=== PATIENT | female | born 1995 | race Caucasian/White ===

== ENCOUNTER 2019-12-18 09:54 | Outpatient (CLI) | payer OTHER, SELFPAY ==
--- NOTE | ~2019-12-18 | US_ITS ---
EXAMINATION: US_IMPLREM_US DATE: 12/18/2019 11:58 INDICATION: Lost Nexplanon implant TECHNIQUE: Multiple grayscale and Doppler ultrasound images of the left upper arm were obtained. Radi ologist was present for the initial imaging but not for the implant removal which was performed by Dr Priscilla Brady. COMPARISON: None FINDINGS: There is approximately 2.4 cm linear echogenic and shadowing foreign body in the deep subcutaneous ti ssue abutting the superficial margin of the muscle at the medial left upper arm. There is no longer v isualized on the image obtained post implant removal. IMPRESSION: 1. Ultrasound utilized to localize Nexplanon implant at the medial left upper arm for removal by Dr. Brady. See procedure note for further detail. Reviewed, dictated and finalized at location A. IMPRESSION: 1. Ultrasound utilized to localize Nexplanon implant at the medial left upper a rm for removal by Dr. Brady. See procedure note for further detail.
--- NOTE | 2019-12-18 16:17 | PM.PROC ---
Procedure Note - Detailed Date of procedure: 12/18/19 Pre-op diagnosis: LOST NEXPLENON Implant Difficult to remove contraceptive implant Post-op diagnosis: same Procedure performed: Ultrasound guided removal of Nexplanon. Description of procedure: The patient was taken to the ultrasound suite. The Nexplanon tushar was visualized sonographically in the left arm. The skin was marked and prepped and infiltrated with 2 mL of 1% lidocaine. A stab incision was made with a #11 scalpel. Under ultrasound guidance, the Nexplanon tushar was able to be grasped with a curved hemostat and removed, intact. It was discarded. Hemostasis was excellent and the patient tolerated the procedure well. Steri-Strips and a pressure dressing were applied. Anesthesia: local (1% lidocaine) Surgeon: Patricio Brady MD Estimated blood loss (mL): 5 Drains: No Packing: No Pathology: none sent Complications: None Condition: stable Disposition: other (Home) Findings: Intact Nexplanon tushar.
== END 2019-12-18 09:55 | disposition home or self-care (01) ==
LOC: ANHIMG 10:11
PROVIDERS: PCP Family Medicine; Visit Provider Obstetrics & Gynecology
DX: Z30.46 Encounter for surveillance of implantable subdermal contraceptive (principal)
CPT/HCPCS: 11976; 76942

== ENCOUNTER 2020-09-12 18:36 | Emergency (ER) | payer BC, MEDICAID, SELFPAY ==
[2020-09-12 18:43] VITALS: BP 130/72; PULSE 87; RESP 17; TEMP 36.4; O2SAT 100
[2020-09-12 19:02] LABS: Basophils Percent Auto 0.2 % (0.2-1.2); Eosinophils Percent Auto 0.3 % (0-4.4); Hematocrit 39.4 % (37.0-47.0); Hemoglobin 13.1 g/dL (12.0-15.0); Immature Granulocyte Absolute 0.05 K/mm3 (0.00-0.031); Immature Granulocyte Percent A 0.4 % (0-0.5); Lymphocytes Absolute Auto 2.04 K/mm3 (0.9-3.2); Lymphocytes Percent Auto 16.4 % (18.3-44.2); Mean Corpuscular HGB Conc 33.2 g/dl (32-36); Mean Corpuscular Hemoglobin 31.2 pg (26-34); Mean Corpuscular Volume 93.8 fl (80-100); Mean Platelet Volume 9.6 fl (7.4-10.4); Monocytes Percent Auto 8.1 % (2.6-8.5); Neutrophils Absolute Auto 9.3 K/mm3 (1.3-6.7); Neutrophils Percent Auto 74.6 % (45.5-73.1); Platelet Count Result 288 k/mm3 (150-375); Red Cell Distribution Width 13.2 % (11.5-14.5); White Blood Count 12.4 K/mm3 (4.5-10.0)
[2020-09-12 19:13] LABS: Anion Gap 9 mmol/L (8-16); Blood Urea Nitrogen 7 mg/dL (7-17); Calcium 9.2 mg/dL (8.4-10.2); Carbon Dioxide 23 mmol/L (22-30); Chloride 104 mmol/L (98-107); Estimated CRCL calculation 141 ml/min; Estimated Glomerular Filt Rate > 60; Glucose 87 mg/dL (65-105); Potassium 3.7 mmol/L (3.4-5.0); Sodium 136 mmol/L (137-145)
[2020-09-12] MEDS: METOCLOPRAMIDE HCL INJ 10 MG/2 ML VIAL IV PUSH (19:29)
[2020-09-12] MEDS: SODIUM CHLORIDE 0.9% IV 1,000 ML 999 ML IV CONT (19:29)
--- NOTE | 2020-09-12 19:31 | ED.GENADULT ---
HPI - General Adult General Chief complaint: Abdominal Pain Stated complaint: , vag spotting, cramping Time Seen by Provider: 09/12/20 19:04 History of Present Illness HPI narrative: Patient is a 24-year-old female who presents [facility] department with chief complaint of abdominal cramping and spotting. Patient reports that she is currently around 9 weeks and has had an outpatient ultrasound by her [facility]. The patient reports she has history of factor V Leiden and states that since Sunday she has been having nausea and vomiting and has had no improvement with her promethazine that she has been taking as an outpatient. The patient reports she has been unable to keep fluids down and today started cramping and had some small amounts of spotting. Related Data Allergies Allergy/AdvReac Type Severity Reaction Status Date / Time latex Allergy Intermediate ITCHY, Verified 09/12/20 18:42 LOCAL RASH, HIVES acetaminophen Allergy Unknown NAUSEA Verified 09/12/20 18:42 hydrocodone Allergy Unknown LIPS Verified 09/12/20 18:42 SWOLLEN naproxen Allergy Unknown LIPS Verified 09/12/20 18:42 SWELLING Review of Systems Review of Systems: Narrative: A 10 system review of systems was completed on the patient and is negative except for what is stated in the HPI. Nursing and ancillary documentation was reviewed. FORMERLY [facility], [facility] Past Medical History Medical History Exercise-induced asthma Factor V Leiden Lamin's thyroiditis History of DVT (deep vein thrombosis) Surgical History Surgical History History of placement of ear tubes Family History Family History Grandparent Lamin's thyroiditis Breast cancer Mother Hypertension Sibling Asthma Father Clotting disorder Social History Social History Smoking packs per day: 0.5 Smoking cigarettes per day: 10.0 Years smoked: 3 Smoking pack-years: 1.50 Smoking status: Former smoker Second hand tobacco smoke exposure: No Smoking end date: 09/24/15 Alcohol intake: current Substance use: never Substance use type: does not use Gender identity (if verbalized by the patient): Female Exam Narrative: Exam Narrative: GENERAL: Well-appearing, well-nourished, and in no acute distress. HEAD: Normocephalic, atraumatic. EYES: PERRLA and EOMI. ENT: Nares clear, no rhinorrhea or epistaxis. Mucous membranes moist. NECK: Supple. CHEST: Clear to auscultation. No respiratory distress. HEART: Regular rate and rhythm. No murmur heard. Normal peripheral pulses. ABDOMEN: Soft, nontender, nondistended, normal active bowel sounds. EXTREMITIES: Normal range of motion. No edema. SKIN: Warm, dry, no rash. NEURO: No focal deficits. Alert and oriented x3. PSYCH: Normal mood and affect. Course Vital Signs Vital signs: Vital Signs Temperature 36.4 C L 09/12/20 18:43 Pulse Rate 87 09/12/20 18:43 Respiratory Rate 17 09/12/20 18:43 Blood Pressure 130/72 09/12/20 18:43 Pulse Oximetry 100 09/12/20 18:43 Temperature 36.4 C L 09/12/20 18:43 Pulse Rate 81 09/12/20 19:34 Respiratory Rate 16 09/12/20 19:34 Blood Pressure 98/64 L 09/12/20 19:34 Pulse Oximetry 99 09/12/20 19:34 Procedures Other Procedure Procedure 1: Other Procedure: Bedside transabdominal ultrasound for evaluation of Using a curvilinear probe in the transabdominal approach a intrauterine was visualized with ultrasound and there was cardiac activity noted on exam. Medical Decision Making Vital Signs Vital Signs: Vital Signs Temperature 36.4 C L 09/12/20 18:43 Pulse Rate 87 09/12/20 18:43 Respiratory Rate 17 09/12/20 18:43 Blood Pressure 130/72 09/12/20 18
[2020-09-12 19:34] VITALS: BP 98/64; PULSE 81; RESP 16; O2SAT 99
[2020-09-12] MEDS: RHO(D) IMMUNE GLOBULIN 300 MCG SYRINGE IM (21:46)
== END 2020-09-12 22:17 | disposition home or self-care (01) ==
PROVIDERS: Emergency Medicine; Emergency Provider Emergency Medicine; PCP Family Medicine
DX: O20.0 Threatened abortion (principal); O21.9 Vomiting of pregnancy, unspecified; O99.111 Other diseases of the blood and blood-forming organs and certain disorders involving the immune mechanism complicating pregnancy, first trimester; D68.51 Activated protein C resistance; O99.281 Endocrine, nutritional and metabolic diseases complicating pregnancy, first trimester; E06.3 Autoimmune thyroiditis; O99.511 Diseases of the respiratory system complicating pregnancy, first trimester; J45.990 Exercise induced bronchospasm; Z86.718 Personal history of other venous thrombosis and embolism; Z3A.09 9 weeks gestation of pregnancy; Z87.891 Personal history of nicotine dependence
CPT/HCPCS: 36415; 80048; 84702; 85025; 85461; 90384; 96361; 96372; 96374; 99284; J2765; J2790; J7030

== ENCOUNTER 2021-01-26 11:03 | Outpatient (RCR) | payer BC, SELFPAY ==
[2021-01-27] MEDS: RHO(D) IMMUNE GLOBULIN 300 MCG/2 ML SYRINGE IM (13:11)
== END 2021-04-26 23:59 | disposition home or self-care (01) ==
LOC: ANHLAB 11:03
PROVIDERS: PCP Family Medicine; Visit Provider Obstetrics & Gynecology
DX: Z29.13 Encounter for prophylactic Rho(D) immune globulin (principal); O36.0190 Maternal care for anti-D [Rh] antibodies, unspecified trimester, not applicable or unspecified; Z3A.00 Weeks of gestation of pregnancy not specified
CPT/HCPCS: 36415; 85461; 90384; 96372; J2790

== ENCOUNTER 2021-02-11 11:31 | Outpatient (CLI) | payer BC, SELFPAY ==
[2021-02-11 12:08] VITALS: BP 110/69; PULSE 99
[2021-02-11 12:14] LABS: Basophils Percent Auto 0.2 % (0.2-1.2); Eosinophils Absolute Auto 0.1 K/mm3 (0-0.3); Eosinophils Percent Auto 0.8 % (0-4.4); Hematocrit 32.9 % (37.0-47.0); Hemoglobin 10.6 g/dL (12.0-15.0); Immature Granulocyte Absolute 0.11 K/mm3 (0.00-0.031); Lymphocytes Absolute Auto 1.75 K/mm3 (0.9-3.2); Lymphocytes Percent Auto 15.4 % (18.3-44.2); Mean Corpuscular HGB Conc 32.2 g/dl (32-36); Mean Corpuscular Hemoglobin 28.3 pg (26-34); Mean Platelet Volume 9.2 fl (7.4-10.4); Monocytes Absolute Auto 0.8 K/mm3 (0.1-0.6); Monocytes Percent Auto 6.7 % (2.6-8.5); Neutrophils Absolute Auto 8.6 K/mm3 (1.3-6.7); Neutrophils Percent Auto 75.9 % (45.5-73.1); Platelet Count Result 319 k/mm3 (150-375); Red Blood Count 3.74 M/mm3 (4.2-5.4); Red Cell Distribution Width 13.3 % (11.5-14.5); White Blood Count 11.3 K/mm3 (4.5-10.0)
[2021-02-11 12:24] LABS: Alanine Aminotransferase 21 U/L (4-35); Albumin Level 3.5 g/dL (3.5-5.1); Alkaline Phosphatase 108 U/L (38-126); Anion Gap 3 mmol/L (8-16); Aspartate Amino Transferase 26 U/L (14-36); Bilirubin,Total 0.1 mg/dL (0.2-1.3); Blood Urea Nitrogen 4 mg/dL (7-17); Calcium 8.9 mg/dL (8.4-10.2); Carbon Dioxide 21 mmol/L (22-30); Chloride 110 mmol/L (98-107); Estimated Glomerular Filt Rate > 60; Glucose 91 mg/dL (65-105); Potassium 3.8 mmol/L (3.4-5.0); Sodium 134 mmol/L (137-145); Uric Acid 3.3 mg/dL (2.5-7.5)
[2021-02-11 12:30] VITALS: BP 125/77; PULSE 91
[2021-02-11 12:37] LABS: Add Urine Microscopic? YES; Appearance Urine Cloudy (Clear); Bacteria Urine Trace /hpf; Bilirubin Urine Negative (Negative); Blood Urine Negative (Negative); Color Urine Yellow (Yellow); Glucose Urine UA Negative (Negative); Ketones Urine Negative (Negative); Leukocyte Esterase Ur 3+ LEU/UL (NEGATIVE); Mucus Urine Rare /lpf; Nitrate Urine Negative (Negative); Protein Urine 1+ mg/dL (Negative); RBC Urine 0-2 /hpf (0-2); Specific Grav Ur 1.013 (1.001-1.035); Squamous Epithelial Cell Urine Many /hpf (Few); Urobilinogen Urine Negative mg/dL (<2.0); WBC Urine 0-3 /hpf (0-3)
[2021-02-11 13:01] VITALS: BP 107/80; PULSE 89
[2021-02-11 13:07] VITALS: TEMP 36.6
[2021-02-11 13:20] VITALS: PULSE 89
== END 2021-02-11 13:22 | disposition home or self-care (01) ==
LOC: ANHOBOP 11:37 → ANHOBPP 11:38
PROVIDERS: PCP Family Medicine; Visit Provider Obstetrics & Gynecology
DX: R51.9 Headache, unspecified (principal); R42 Dizziness and giddiness
CPT/HCPCS: 36415; 59025; 80053; 81001; 84550; 85025; 99199

== ENCOUNTER 2021-03-25 15:41 | Outpatient (CLI) | payer BC, MEDICAID, SELFPAY ==
[2021-03-25 16:57] LABS: Add Urine Microscopic? YES; Amorphous Sediment Urine Few; Appearance Urine Cloudy (Clear); Bacteria Urine Trace /hpf; Bilirubin Urine Negative (Negative); Blood Urine Negative (Negative); Color Urine Yellow (Yellow); Glucose Urine UA Negative (Negative); Ketones Urine Negative (Negative); Leukocyte Esterase Ur 3+ LEU/UL (Negative); Mucus Urine Moderate /lpf; Nitrate Urine Negative (Negative); Protein Urine 1+ mg/dL (Negative); Specific Grav Ur 1.025 (1.001-1.035); Squamous Epithelial Cell Urine Many /hpf (Few); Urobilinogen Urine Negative mg/dL (<2.0)
--- NOTE | 2021-03-26 10:58 | PM.OBTRLD ---
OB - Triage/Final Diagnosis Visit Information Date of evaluation: 03/25/21 Reason for evaluation: other (r/o SROM) Comments/Additional reasons for admission: I have assessed the risk for this patient, Hina Siegel, and determined that she would benefit from observation care. Evaluation Laboratory results: Laboratory Tests 03/25/21 16:39 Urine Color Yellow Urine Appearance Cloudy H Urine pH 6.0 Ur Specific [place] 1.025 Urine Protein 1+ H Urine Glucose (UA) Negative Urine Ketones Negative Ur Blood (Man) Negative Urine Nitrate Negative Urine Bilirubin Negative Urine Urobilinogen Negative Leukocyte Esterase Rfl 3+ H Urine RBC 3-5 H Urine WBC 4-6 H Ur Squamous Epith Cells Many H Amorphous Sediment Few H Urine Bacteria Trace Hyaline Casts 3-4 H Urine Mucus Moderate H
== END 2021-03-25 17:10 | disposition home or self-care (01) ==
LOC: ANHOBOP 16:31 → ANHLDR 16:32
PROVIDERS: Student in an Organized Health Care Education/Training Program; PCP Family Medicine; Visit Provider Obstetrics & Gynecology
DX: O41.93X1 Disorder of amniotic fluid and membranes, unspecified, third trimester, fetus 1 (principal); Z3A.36 36 weeks gestation of pregnancy
CPT/HCPCS: 59025; 81001; 84112; 99199

== ENCOUNTER 2021-04-10 15:50 | Inpatient (IN) | payer BC, MEDICAID, SELFPAY ==
[2021-04-10] VITALS (8 sets, daily range): BP systolic 72–131; BP diastolic 51–90; PULSE 66–101; TEMP 36.6–36.9; BMI 31.4
[2021-04-10 16:38] LABS: Basophils Percent Auto 0.1 % (0.2-1.2); Eosinophils Percent Auto 0.3 % (0-4.4); Hematocrit 32.5 % (37.0-47.0); Immature Granulocyte Absolute 0.08 K/mm3 (0.00-0.031); Immature Granulocyte Percent A 0.7 % (0-0.5); Lymphocytes Absolute Auto 1.71 K/mm3 (0.9-3.2); Lymphocytes Percent Auto 15.3 % (18.3-44.2); Mean Corpuscular HGB Conc 30.8 g/dl (32-36); Mean Corpuscular Hemoglobin 25.4 pg (26-34); Mean Corpuscular Volume 82.5 fl (80-100); Mean Platelet Volume 9.6 fl (7.4-10.4); Monocytes Absolute Auto 0.8 K/mm3 (0.1-0.6); Monocytes Percent Auto 6.8 % (2.6-8.5); Neutrophils Absolute Auto 8.6 K/mm3 (1.3-6.7); Neutrophils Percent Auto 76.8 % (45.5-73.1); Platelet Count Result 337 k/mm3 (150-375); Red Blood Count 3.94 M/mm3 (4.2-5.4); Red Cell Distribution Width 14.6 % (11.5-14.5); White Blood Count 11.2 K/mm3 (4.5-10.0)
[2021-04-10 16:55] LABS: Amphetamine Screen Urine Negative (Negative); Barbiturate Screen Urine Negative (Negative); Benzodiazepines Screen Urine Negative (Negative); Cannabinoid Screen Urine Negative (Negative); Cocaine Screen Urine Negative (Negative); Methadone Screen Urine Negative (Negative); Opiate Screen Urine Negative (Negative); Phencyclidine Screen Urine Negative (Negative)
[2021-04-10] MEDS: LACTATED RINGERS 1,000 ML 125 ML IV CONT ×2 (17:11→21:01)
[2021-04-10] MEDS: AMPICILLIN 2 GM/NS 100 ML 2 GM/100 ML BAG IVPB (17:12)
[2021-04-10 19:29] LABS: INR 0.9; Prothrombin Time 12.5 Seconds (11.1-14.7)
[2021-04-10 19:30] LABS: Partial Thromboplastin Time 22.9 SECONDS (22.3-36.8)
[2021-04-10] MEDS: DINOPROSTONE 10 MG VAG INSERT VAGINAL (19:30)
[2021-04-10] MEDS: AMPICILLIN 1 GM/NS 50 ML 1 GM/50 ML BAG IVPB (21:01)
[2021-04-11] VITALS (280 sets, daily range): BP systolic 69–128; BP diastolic 12–102; PULSE 42–155; TEMP 36.2–38.4; O2SAT 90–100
[2021-04-11] MEDS: AMPICILLIN 1 GM/NS 50 ML 1 GM/50 ML BAG IVPB ×6 (01:26→22:45)
[2021-04-11] MEDS: OXYTOCIN 30 UNITS/NS 500 ML 30 UNITS/500 ML BAG 125 UNITS IV CONT (07:39)
--- NOTE | 2021-04-11 08:40 | WPDOBADMIT ---
Obstetrics - Admit Note Admission Note: record reviewed. Additions to the history and/or subsequent changes in the physical findings follow. 25 y/o G1 at 39 1/7 weeks with thrombophilia, here for induction of labor. Cervidil overnight, has been withdrawn. AVSS NST reactive TOCO: contractions irregularly ABD soft, nontender, gravid, vertex EXT nontender Cervix 2-3/50/-2. AROM with clear fluid. A: IUP at term with thrombophilia. P: Induction of labor with oxytocin. Anticipate .
[2021-04-11 09:52] LABS: Rapid Plasma Reagin Non-Reactive (NonReactive)
--- NOTE | 2021-04-11 12:15 | WPDANESEPPF ---
Anes - Initial Pre Proc Eval Procedure: labor epidural Date/Time: 04/11/21 12:15 Surgeon: Patricio Brady MD Pre Op Diagnosis: labor pain Pre Op Diagnosis: MIL Patient Data Age: 25 Gender: F Height: 1.7 m Weight: 91 kg Last Vital Signs Temp 36.7 C 04/11/21 10:45 Pulse 68 04/11/21 12:01 BP 101/53 L 04/11/21 12:01 Pulse Ox 100 04/11/21 12:10 Allergies Allergy/AdvReac Type Severity Reaction Status Date / Time latex Allergy Intermediate ITCHY, Verified 04/10/21 16:34 LOCAL RASH, HIVES naproxen Allergy Unknown LIPS Verified 04/10/21 16:34 SWELLING Home Medications Medication Instructions Recorded Confirmed Type levothyroxine 75 mcg tablet 75 mcg PO DAILY #30 tablet 02/21/21 04/10/21 Rx Gummies 2 PO DAILY 03/21/21 History escitalopram oxalate [Lexapro] 10 mg PO DAILY 03/21/21 04/10/21 History heparin (bovine) 100 unit 03/21/21 History Laboratory Tests 04/10/21 04/10/21 04/10/21 16:31 16:32 16:32 WBC 11.2 K/mm3 H K/mm3 (4.5-10.0) RBC 3.94 M/mm3 L M/mm3 (4.2-5.4) Hgb 10.0 g/dL L g/dL (12.0-15.0) Hct 32.5 % L % (37.0-47.0) MCV 82.5 fl fl (80-100) MCH 25.4 pg L pg (26-34) MCHC 30.8 g/dl L g/dl (32-36) RDW 14.6 % H % (11.5-14.5) Plt Count 337 k/mm3 k/mm3 (150-375) MPV 9.6 fl fl (7.4-10.4) Immature Gran % (Auto) 0.7 % H % (0-0.5) Neut % (Auto) 76.8 % H % (45.5-73.1) Lymph % (Auto) 15.3 % L % (18.3-44.2) Powell % (Auto) 6.8 % % (2.6-8.5) Eos % (Auto) 0.3 % % (0-4.4) Baso % (Auto) 0.1 % L % (0.2-1.2) Lymph # (Auto) 1.71 K/mm3 K/mm3 (0.9-3.2) Powell # (Auto) 0.8 K/mm3 H K/mm3 (0.1-0.6) Eos # (Auto) 0.0 K/mm3 K/mm3 (0-0.3) Baso # (Auto) 0.0 K/mm3 K/mm3 (0.0-0.1) Abs Immat Gran (auto) 0.08 K/mm3 H K/mm3 (0.00-0.031) Absolute Neuts (auto) 8.6 K/mm3 H K/mm3 (1.3-6.7) Absolute Nucleated RBC 0.0 K/mm3 K/mm3 (0.0-0.012) Nucleated RBC % 0.0 % % (0.0-0.2) PT INR APTT Urine Opiates Screen Negative (Negative) Urine Methadone Screen Negative (Negative) Ur Barbiturates Screen Negative (Negative) Ur Phencyclidine Scrn Negative (Negative) Ur Amphetamine Screen Negative (Negative) U Benzodiazepines Scrn Negative (Negative) Urine Cocaine Screen Negative (Negative) U Cannabinoids Screen Negative (Negative) RPR Non-reactive (NonReactive) Blood Type Antibody Screen 04/10/21 04/10/21 16:32 19:04 WBC RBC Hgb Hct MCV MCH MCHC RDW Plt Count MPV Immature Gran % (Auto) Neut % (Auto) Lymph % (Auto) Powell % (Auto) Eos % (Auto) Baso % (Auto) Lymph # (Auto) Powell # (Auto) Eos # (Auto) Baso # (Auto) Abs Immat Gran (auto) Absolute Neuts (auto) Absolute Nucleated RBC Nucleated RBC % PT 12.5 Seconds Seconds (11.1-14.7) INR 0.9 APTT 22.9 SECONDS SECONDS (22.3-36.8) Urine Opiates Screen Urine Methadone Screen Ur Barbiturates Screen Ur Phencyclidine Scrn Ur Amphetamine Screen U Benzodiazepines Scrn Urine Cocaine Screen U Cannabinoids Screen RPR Blood Type O Negative Antibody Screen Negative Patient hx anesthesia problems: none Family hx anesthesia problems: none PMFSH Past Medical History Medical History Exercise-induced asthma
[2021-04-11] MEDS: SODIUM CHLORIDE 0.9% IV 300 ML 180 ML I-UTERINE (12:47)
--- NOTE | 2021-04-11 12:58 | PM.IMHP ---
H&P: HPI History of Present Illness Date/Time: 04/11/21 0840 25 y/o G1 at 39 1/7 weeks with thrombophilia, here for induction of labor. History of PE while taking a combined oral contraceptive, has a factor V Leiden gene mutation (heterozygous). Also has hypothyroidism, depression / anxiety, and marijuana use. Has been on Lovenox, switched to heparin. Now here for induction of labor. Cervidil overnight, has been withdrawn. Chief Complaint: Here for induction of labor Review of Systems Review of Systems: All systems reviewed & are unremarkable except as noted in HPI and below PMFSH Past Medical History Medical History Anxiety Exercise-induced asthma Factor V Leiden Lamin's thyroiditis History of DVT (deep vein thrombosis) History of pulmonary embolism Surgical History Surgical History History of placement of ear tubes Family History Family History Grandparent Breast cancer Lamin's thyroiditis Leukemia Mother Hypertension Sibling Asthma Father Clotting disorder Social History Social History Smoking packs per day: 0.5 Smoking cigarettes per day: 10.0 Years smoked: 3 Smoking pack-years: 1.50 Smoking status: Never smoker Second hand tobacco smoke exposure: No Smoking end date: 09/24/15 Alcohol intake: current Alcohol use details: occasional Substance use: current Substance use type: does not use Last use: LAST 03/20/21 Gender identity (if verbalized by the patient): Female Spiritual care concerns: No Meds Home Medications and Allergies Home Medications Medication Instructions Recorded Confirmed Type levothyroxine 75 mcg tablet 75 mcg PO DAILY #30 tablet 02/21/21 04/10/21 Rx Gummies 2 PO DAILY 03/21/21 History escitalopram oxalate [Lexapro] 10 mg PO DAILY 03/21/21 04/10/21 History heparin (bovine) 100 unit 03/21/21 History Allergies Allergy/AdvReac Type Severity Reaction Status Date / Time latex Allergy Intermediate ITCHY, Verified 04/10/21 16:34 LOCAL RASH, HIVES naproxen Allergy Unknown LIPS Verified 04/10/21 16:34 SWELLING Vital Signs Vital Signs - 24 hr 04/10/21 16:21 04/10/21 17:15 04/10/21 18:00 Temperature Pulse Rate 101 H 78 76 Blood Pressure 112/85 104/62 109/67 Pulse Oximetry 04/10/21 19:04 04/10/21 19:34 04/10/21 20:00 Temperature 36.9 C Pulse Rate 73 93 Blood Pressure 91/51 L 117/90 Pulse Oximetry 04/10/21 21:01 04/10/21 23:19 04/11/21 01:28 Temperature 36.6 C 36.8 C Pulse Rate 78 66 62 Blood Pressure 131/75 72/57 L 95/56 L Pulse Oximetry 04/11/21 05:13 04/11/21 07:40 04/11/21 07:41 Temperature 36.6 C Pulse Rate 60 66 Blood Pressure 95/51 L 104/56 L Pulse Oximetry 100 04/11/21 07:45 04/11/21 07:50 04/11/21 07:55 Temperature Pulse Rate 58 L Blood Pressure 97/57 L Pulse Oximetry 100 99 99 04/11/21 08:00 04/11/21 08:01 04/11/21 08:05 Temperature Pulse Rate 65 Blood Pressure 96/64 L Pulse Oximetry 100 99 04/11/21 08:10 04/11/21 08:15 04/11/21 08:20 Temperature Pulse Rate 76 Blood Pressure 108/70 Pulse Oximetry 100 100 100 04/11/21 08:25 04/11/21 08:30 04/11/21 08:35 Temperature Pulse Rate 66 Blood Pressure 106/73 Pulse Oximetry 100 100 100 04/11/21 08:40 04/11/21 08:45 04/11/21 08:46 Temperature 36.6 C Pulse Rate 74 Blood Pressure 109/72 Pulse Oximetry 100 100 100 04/11/21 08:51 04/11/21 08:56 04/11/21 09:01 Temperature Pulse Rate 61 Blood Pressure 95/58 L Pulse Oximetry 100 100 100 04/11/21 09:06 04/11/21 09:11 04/11/21 09:15 Temperature Pulse Rate 69 Blood Pressure 104/55 L Pulse Oximetry 100 100 04/11/21 09:16 04/11/21 09:20
[2021-04-11] MEDS: LACTATED RINGERS 1,000 ML 125 ML IV CONT ×2 (15:58→22:45)
[2021-04-11] MEDS: SODIUM CHLORIDE 0.9% IV 1,000 ML 150 ML I-UTERINE (18:34)
[2021-04-11] MEDS: ONDANSETRON INJ 4 MG/2 ML VIAL IV PUSH (20:42)
[2021-04-12] VITALS (70 sets, daily range): BP systolic 79–120; BP diastolic 48–102; PULSE 53–143; RESP 14–18; TEMP 36.7–37.4; O2SAT 95–100
--- NOTE | 2021-04-12 02:19 | PM.OBPRVD ---
OB - Delivery Note Procedure Delivery date: 04/12/21 Procedure: Induction of labor Midline episiotomy Induction method: per pitocin protocol and per cervidil protocol Delivery monitor: external FHT, external uterine, internal FHT and internal uterine Route of delivery: Episiotomy description: Midline Delivery repair: vicryl (3-0) Specimen: Yes (cord blood, placenta) Quantitative Blood Loss (ml): 125 Anesthesia type: Epidural Disposition: PACU Complications: none Narrative: 25 y/o G1 at 39 2/7 weeks gestation who presented to the hospital for induction of labor. She was given ampicillin for GBS colonization. Cervidil was placed overnight, then withdrawn the next morning. Oxytocin was administered intravenously. Amniotomy was performed with return of clear fluid. Meconium-stained fluid was subsequently noted. She received an epidural for pain control. An intrapartum fever of 101.4F was treated with acetaminophen. Her labor progressed and her cervix dilated completely. She pushed with good effort. A midline episiotomy was made and she delivered the infant's head to the perineum, followed by the body. The nose and mouth were bulb suctioned. After a delay, the cord was clamped and cut. The was handed off the field. Cord blood was collected. The placenta delivered spontaneously and was grossly normal in appearance. The usual 3 vessel cord was noted. The midline episiotomy was free of extension. It was reapproximated using 3 0 Vicryl in the usual layered fashion. Excellent hemostasis resulted as did excellent reapproximation of the normal anatomy. Needle and instrument counts were correct. The patient was taken to recovery room in stable condition. The infant went to the nursery in stable condition. I was present and scrubbed for the entire delivery. [place] Baby Date of : 04/12/21 Time of : 01:56 Weeks of gestation at delivery: 39 Infant gender: Female Weight (pounds): 6 Weight (ounces): 11 presentation: vertex position: Left Occiput Anterior Placenta delivery description: Spontaneous and Normal Configuration cord vessel description: 3 Vessels and Delayed Cord Clamping score one minute: 8 score five minutes: 8
--- NOTE | 2021-04-12 02:23 | PM.OBDSVD ---
DS: Admitting Diagnosis Admitting Diagnosis Admitting Diagnosis: IUP at 39 2/7 weeks Thrombophilia DS: Discharge Diagnosis Discharge Diagnosis (1) Thrombophilia affecting in third trimester, antepartum: Code(s): O99.113 - Other diseases of the blood and blood-forming organs and certain disorders involving the immune mechanism complicating , third trimester; D68.59 - Other primary thrombophilia Status: Acute (2) (normal spontaneous vaginal delivery): Code(s): O80 - Encounter for full-term uncomplicated delivery Status: Acute OB - DS: Summary OB Procedures : None OB Procedures Intrapartum: Spontaneous Vag Delivery OB Procedures: : None DS: Data Data Completed and Pending Labs on day of discharge: Labs from last 24 hours 04/10/21 16:32 RPR Non-reactive Discharge Plan Discharge Attending physician on discharge: Patricio Brady Consulting providers: Tim Duval Discharging Clinician: Patricio Brady Patient Disposition: Home, Self-Care Activity: pelvic rest Diet: regular Discharge Instructions: Call or return if temperature above 100.4? F, increased abdominal pain, increased vaginal bleeding or any new problems. Education: Mom and Baby Guide Given to: Mother Follow-Up: Call your delivering provider's office for an appointment to be seen in: 6 Weeks Mom and baby should come to the [facility] for the follow-up appointment. Appointment Date/Time: Thursday April 15, 2021 at 9:00 am What to expect at your follow-up visit: Blood Pressure Check Physical Assessment Call [phone] if you are unable to keep your appointment time. BREAST CARE: * Wear a snug supportive bra. * For engorgement discomfort: Breast Feeding: * Apply warm moist washcloths * Express milk as needed to relieve engorgement * Wear loose clothing Bottle Feeding: * May apply ice packs * For sore nipples: * Identify correct latch-on * Apply warm moist washcloths before and after nursing * Air dry nipples after nursing * May apply Lansinoh cream to nipples EPISIOTOMY/PERINEAL CARE: * Until bleeding stops, use your charly bottle after urinating * Change your pad frequently throughout the day * You may take sitz baths several times a day (fill your bathtub with warm water and soak for 20 minutes.) Do NOT bathe in the water * No tub baths until seen by your physician - You may shower ACTIVITY: * Rest as much as possible. * Do not exercise or lift anything heavier than your baby (such as laundry or other children.) * Avoid stairs or driving as much as possible. * Do not put anything into the vagina. No douching, tampons, or sexual activity until seen by physician. NOTIFY PHYSICIAN IF YOU HAVE ANY QUESTIONS OR IF ANY OF THE FOLLOWING SYMPTOMS OCCUR: * If your episiotomy becomes red, swollen, or more painful than what you have experienced in the hospital. * If your vaginal bleeding becomes foul smelling. * If your vaginal bleeding becomes more heavy than a period or if your bleeding changes from pink to bright red. However, you may pass an occasional walnut-sized clot once or twice for the first week . * If you experience a sharp, shooting pain in you calves. * If you discover a hard, reddened area on your breast or if you experience flu-like symptoms. DIET: * Eat regular, well-balanced meals. * Drink plenty of fluids daily. If , drink to thirst. Stand Alone Forms: General Discharge Information Follow-up/Referrals: Patricio Brady MD [Physician] - 6 Weeks Discharge Medications: New ibuprofen 600 mg tablet 600 mg PO Q6H PRN (Reason: cramps) Qty: 30 RF: 0 enoxaparin [Lovenox] 40 mg/0.4 mL syringe 40 mg subcut DAILY Qty: 16 RF: 0 ferrous sulfate [Iron (ferrous sulfate)] 325 mg (65 m
[2021-04-12] MEDS: OXYTOCIN 30 UNITS/NS 500 ML 30 UNITS/500 ML BAG 125 UNITS IV CONT (02:33)
[2021-04-12] MEDS: IBUPROFEN 600 MG TABLET PO ×3 (05:54→19:53)
--- NOTE | 2021-04-12 06:23 | OBPPTRN ---
Patient transferred to post room # 279 via ( Wheelchair ). Support person present. Oriented to unit, room, information board, rooming in, admission packet and security measures. Patient verbalizes understanding. PT introductions made and plan of care discussed per post , pain management, breast feeding, daily care activities. PT and fob recipients of education. PT received education via one to one discussion and mom baby care guide and demonstration. no barriers to learning noted. PT verbalized understanding of such care.
[2021-04-12] MEDS: LEVOTHYROXINE SODIUM 75 MCG TABLET PO (09:40)
[2021-04-12] MEDS: MULTIVIT/MIN/PREN/FOL AC/IRON TABLET 1 TAB PO (09:40)
[2021-04-12] MEDS: DOCUSATE SODIUM 100 MG CAPSULE PO (09:40)
[2021-04-12] MEDS: ACETAMINOPHEN 325 MG TABLET 650 MG PO ×3 (09:41→19:55)
[2021-04-12] MEDS: LANOLIN (LANSINOH) 7.5 GM CREAM 1 APPLIC TOPICAL (09:41)
[2021-04-12] MEDS: ENOXAPARIN 40 MG/0.4 ML SYRINGE SUB-Q (09:42)
--- NOTE | 2021-04-12 09:50 | PC.NURSE ---
Mother called out for assist with feeding. Mother reports using nipple shield for most feedings, infant is unable to draw nipple in without shield. Reviewed instructions on application and cleaning of shield. Discussed nipple shield precautions and possible complications. Patient able to return demonstration on proper application of shield. Discussed the need to initiate pumping if continues to nurse with the shield. Patient verbalizes understanding. Infant is able to freely thrust tongue past gum ridge and flange both lips. Skin is intact on both nipples, no redness and bruising noted. Reviewed feeding cues, frequencies, duration of feedings, feeding elimination flow sheet, and signs of adequate intake. Demonstrated stimulation techniques to wake infant for feeding. Assisted with to breast. Reviewed positioning/alignment in cross cradle, holding breast in ?U? hold and guided asymmetrical latch on. Discussed rational for each. able to latch correctly using shield. Infant nursed eagerly, with steady draws and frequent swallowing noted. Suggested mother stimulate while feeding to increase stimulate, increase intake and to assist with maintaining deep latch. Reviewed signs of a correct latch, effective nursing and suck swallow ratio. Infant was able to maintain latch without discomfort to mother. Demonstrated how to adjust latch more deeply while feeding if needed. Mother reports she can feel change in latch and has no tenderness. Nipple care reviewed of lanolin after feedings, warm compresses as needed. Instructed mother to call out for RN assistance if she is unable to latch infant for feeding or she has discomfort with nursing. Mother reports shes has a pump for home use she would prefer to use, FOB will get pump for mother to use. Mother will call out when pump is available.
--- NOTE | 2021-04-12 12:02 | PCCCNOTE ---
Care Coordination: Received referral that states pt. and S.O. has history of marijuana use. Pt. was negative on her UDS upon admission. No meconium was tested on baby. Per pt's medical notes, pt. has history of anxiety and depression. and counseling resources were provided to pt. Pt. reports baby girl and her will be living with RADHA Olson in [place]. Pt. reports Wesley also has a residence in [place]. Pt. reports this is her first baby and has support from both hers' and Wesley's family. Pt. reports their families are very close knit and involved. Pt. reports having all necessary baby supplies besides needing more bottles; pt. states she planned to breastfeed but unsure if baby will continue or if she will need more bottles. Pt. reports being set up with WIC and [facility] [place] already, and [facility] pending. Pt. reports no prior involvement with DCFS and reports she has history of marijuana use but denies any use during her . Updates given to YUE Jade
[2021-04-13] MEDS: ACETAMINOPHEN 325 MG TABLET 650 MG PO ×2 (05:20→15:07)
[2021-04-13] MEDS: IBUPROFEN 600 MG TABLET PO ×2 (05:21→21:03)
[2021-04-13 05:37] LABS: Hematocrit 26.3 % (37.0-47.0); Hemoglobin 7.9 g/dL (12.0-15.0)
--- NOTE | 2021-04-13 06:30 | PC.NURSE ---
PT introductions made and plan of care discussed per post , pain management, breast feeding, baby under phototherapy, and daily care. PT received information via one to one discussion, mom baby care guide and demonstration through this shift. no barriers to learning identified and pt and fob both recipients of such instructions. PT verbalized understanding of such care.
[2021-04-13 08:00] VITALS: BP 101/57; PULSE 57; RESP 16; TEMP 36.9; O2SAT 100
[2021-04-13 09:00] VITALS: PULSE 57; RESP 16; O2SAT 100
[2021-04-13] MEDS: POLYSACCHARIDE IRON COMPLEX 150 MG CAPSULE PO ×2 (10:25→17:59)
[2021-04-13] MEDS: DOCUSATE SODIUM 100 MG CAPSULE PO ×2 (10:25→17:59)
[2021-04-13] MEDS: MULTIVIT/MIN/PREN/FOL AC/IRON TABLET 1 TAB PO (10:26)
[2021-04-13] MEDS: LEVOTHYROXINE SODIUM 75 MCG TABLET PO (10:26)
[2021-04-13] MEDS: ENOXAPARIN 40 MG/0.4 ML SYRINGE SUB-Q (10:26)
--- NOTE | 2021-04-13 10:45 | WPDANLDPN2 ---
Anes-Prog Note L&D Date/Time: 04/13/21 10:45 Comfortable throughout: labor and delivery Neuraxial method: epidural Epidural/Spinal procedure site: clean & non-tender Neuro status: Neuro function grossly intact. Cardiovascular status: normal Respiratory status: normal Airway patency: baseline Mental status: baseline Post-Op hydration status: normal Vital Signs: Last Vital Signs Temp 36.9 C 04/13/21 08:00 Pulse 57 L 04/13/21 08:00 Resp 16 04/13/21 08:00 BP 101/57 L 04/13/21 08:00 Pulse Ox 100 04/13/21 08:00 Pain score (VAS): 0 Post-procedural complaints: none Patient feedback: Patient satisfied with anesthetic care.
--- NOTE | 2021-04-13 11:55 | PC.NURSE ---
Mother called out for assist with feeding. is now under bili lights, parents will breastfeed/attempt for 30 minutes then bottle feed under lights. ICP has ordered 20 mls after each due to jaundice. Mther is pumping due to shield use. Mother reports has latched a few times without shield. Reviewed feeding cues, frequencies, duration of feedings, feeding elimination flow sheet, and signs of adequate intake. Demonstrated stimulation techniques to wake for feeding. Assisted with to breast. Reviewed positioning/alignment in cross cradle, holding breast in ?U? hold and guided asymmetrical latch on. Discussed rational for each. Infant able to latch correctly without shield. nursed eagerly, with steady draws and frequent swallowing noted. Suggested mother stimulate while feeding to increase stimulate, increase intake and to assist with maintaining deep latch. Reviewed signs of a correct latch, effective nursing and suck swallow ratio. would slip to shallow latch, mother reports tenderness. Demonstrated how to adjust latch more deeply while feeding. Mother reports she can feel change in latch and has no tenderness. Nipple care reviewed of lanolin after feedings, warm compresses as needed. Instructed mother to call out for RN assistance if she is unable to latch infant for feeding or she has discomfort with nursing.
--- NOTE | 2021-04-13 13:30 | PM.OBPNVD ---
OB - PN: Subj Subjective Date/time seen: 04/13/21 18:44 Narrative: Pain OK. OB - PN: Obj Data Labs CBC & Chem 7: 04/13/21 05:31 Labs: Laboratory Results - last 24 hr 04/13/21 04/13/21 05:31 05:31 Hgb 7.9 L Hct 26.3 L Blood Type O Negative Antibody Screen TNP Screen Negative Baby's Blood Type A pos Baby's CAT Positive Doses of RhIg Required 1 OB - PN A/P Plan Comments: A: PPD#1, doing well. P: Routine care. Exam Psych: Other: AVSS ABD soft, nontender, fundus firm EXT nontender
[2021-04-13] MEDS: ESCITALOPRAM OXALATE 10 MG TABLET PO (15:08)
[2021-04-13] MEDS: RHO(D) IMMUNE GLOBULIN 300 MCG/2 ML SYRINGE IM (15:09)
[2021-04-13 20:25] VITALS: BP 104/64; PULSE 70; RESP 14; TEMP 37; O2SAT 100
[2021-04-14] MEDS: ENOXAPARIN 40 MG/0.4 ML SYRINGE SUB-Q (07:34)
[2021-04-14] MEDS: DOCUSATE SODIUM 100 MG CAPSULE PO (07:35)
[2021-04-14] MEDS: IBUPROFEN 600 MG TABLET PO (07:35)
[2021-04-14] MEDS: POLYSACCHARIDE IRON COMPLEX 150 MG CAPSULE PO (07:35)
[2021-04-14] MEDS: ESCITALOPRAM OXALATE 10 MG TABLET PO (07:36)
[2021-04-14] MEDS: MULTIVIT/MIN/PREN/FOL AC/IRON TABLET 1 TAB PO (07:36)
[2021-04-14] MEDS: WITCH HAZEL 40 PADS 1 PAD TOPICAL (07:36)
[2021-04-14] MEDS: BENZOCAINE 20% AER SPR (*SP) 56 GM CAN 1 SPRAY TOPICAL (07:36)
[2021-04-14 08:00] VITALS: BP 109/72; PULSE 88; RESP 18; TEMP 36.5
--- NOTE | 2021-04-14 08:00 | PC.NURSE ---
Patient was given the opportunity to view the discharge video Mother & Baby Care, The First Two Weeks and to ask questions. Patient declined viewing the video and has been given the mother/baby guide for home reference.
--- NOTE | 2021-04-14 09:54 | PC.NURSE ---
Self care and infant care discharge instructions given to pt. including follow up visit date and time. Pt. verbalized understanding. No questions or concerns voiced. Very pleasant and cooperative. FOB at side.
[2021-04-15 09:42] VITALS: BP 112/67; PULSE 68; RESP 20; TEMP 36.6; O2SAT 99
== END 2021-04-14 13:37 | disposition home or self-care (01) | DRG 806 ==
LOC: ANHLDR 04-12 02:25 → ANHOB2 04-14 09:56 → ANHLDR 04-15 12:38 → ANHOB2 04-15 12:38
PROVIDERS: Admitting Provider Obstetrics & Gynecology; PCP Family Medicine; Visit Provider Student in an Organized Health Care Education/Training Program
DX: O99.12 Other diseases of the blood and blood-forming organs and certain disorders involving the immune mechanism complicating childbirth (principal); D68.59 Other primary thrombophilia; Z37.0 Single live birth; D68.51 Activated protein C resistance; Z3A.39 39 weeks gestation of pregnancy; O99.824 Streptococcus B carrier state complicating childbirth; O77.0 Labor and delivery complicated by meconium in amniotic fluid; O36.8330 Maternal care for abnormalities of the fetal heart rate or rhythm, third trimester, not applicable or unspecified; O99.284 Endocrine, nutritional and metabolic diseases complicating childbirth; E03.9 Hypothyroidism, unspecified; F41.8 Other specified anxiety disorders; O99.344 Other mental disorders complicating childbirth; O99.324 Drug use complicating childbirth; F12.90 Cannabis use, unspecified, uncomplicated
CPT/HCPCS: 36415; 80307; 85014; 85018; 85025; 85461; 85610; 85730; 86592; 86850; 86900; 86901; 88307; 90384; A9270; J0131; J0290; J1650; J2405; J2590; J2790; J2795; J7030; J7120

== ENCOUNTER 2022-01-05 14:24 | Emergency (ER) | payer BC, MEDICAID, SELFPAY ==
--- NOTE | ~2022-01-05 | CT_ITS ---
EXAMINATION: CT abdomen pelvis w con DATE: 01/05/2022 15:37 INDICATION: Right upper quadrant abdominal pain TECHNIQUE: Computed tomography (CT) of the abdomen and pelvis was performed with 100 CC Omnipaque 350 intravenous contrast. Automated exposure control and iterative reconstruction technique were employe d. Exam dose: 449.92 mGy-cm total exam DLP. COMPARISON: None. FINDINGS: There is mild discoid atelectasis or more likely scarring in the lower lobes. No infiltrate or consolidation at the lung bases. Normal heart size. No pericardial or pleural effusion. No gallbladder wall thickening or pericholecystic fluid or fat stranding or obvious evidence of any g allstones is noted. Ultrasound examination would be more sensitive for detection of cholelithiasis. No bile duct or pancreatic duct dilatation. 5 mm lateral hepatic dome cyst. The liver, spleen, pancreas, and adrenal glands and kidneys are other dumont unremarkable. Normal caliber of the abdominal aorta. No intraperitoneal or retroperitoneal or pelvic mass lesion or adenopathy or ascites. There is an IUD within the uterus. The urinary bladder and adnexal areas are unremarkable. Normal appendix. No bowel obstruction, bowel wall thickening, pneumatosis or intraperitoneal free air . IMPRESSION: 5 mm hepatic dome cyst IUD within uterus Reviewed, dictated and finalized at [facility]. Reviewed, dictated and finalized at [facility].
[2022-01-05 14:31] VITALS: BP 131/82; PULSE 77; RESP 16; TEMP 36.3; O2SAT 100
--- NOTE | 2022-01-05 14:37 | ED.ABDPAIN ---
HPI - Abdominal Pain General Chief Complaint: Abdominal Pain Stated Complaint: RUQ pain Time Seen by Provider: 01/05/22 14:25 History of Present Illness HPI narrative: 26-year-old female presents the emergency room with acute onset of right upper quadrant pain that began this morning. Pain is associated with nausea. Denies fever. States pain radiates into her back and up to her right shoulder blade. Patient denies any abdominal surgeries. Patient is currently breast-feeding. Unknown when her last menstrual period was. Related Data Home Medications Medication Instructions Recorded Confirmed Gummies 2 PO DAILY 03/21/21 escitalopram oxalate [Lexapro] 10 mg PO DAILY 03/21/21 04/10/21 Allergies Allergy/AdvReac Type Severity Reaction Status Date / Time latex Allergy Intermediate ITCHY, Verified 01/05/22 14:34 LOCAL RASH, HIVES naproxen Allergy Unknown LIPS Verified 01/05/22 14:34 SWELLING Review of Systems Review of Systems: CONSTITUTIONAL: Denies fever, chills, or sweats. EYES: Denies visual changes, redness, or discharge. ENT: Denies rhinorrhea, congestion, sore throat, or otalgia. CARDIOVASCULAR: Denies chest pain, palpitations, or edema. RESPIRATORY: Denies cough or dyspnea. GASTROINTESTINAL: Reports right upper quadrant abdominal pain, nausea GENITOURINARY: Denies dysuria or hematuria. SKIN: Denies rash or itching. MUSCULOSKELETAL: Denies back pain, joint pain, or myalgia. NEUROLOGIC: Denies headache, numbness, dizziness, or weakness. PSYCHIATRIC: Denies anxiety or depression. [facility] Past Medical History Medical History Anxiety Exercise-induced asthma Factor V Leiden Lamin's thyroiditis History of DVT (deep vein thrombosis) History of pulmonary embolism Surgical History Surgical History History of placement of ear tubes Family History Family History Grandparent Breast cancer Lamin's thyroiditis Leukemia Mother Hypertension Sibling Asthma Father Clotting disorder Social History Social History Smoking packs per day: 0.5 Smoking cigarettes per day: 10.0 Years smoked: 3 Smoking pack-years: 1.50 Smoking status: Never smoker Second hand tobacco smoke exposure: No Smoking end date: 09/24/15 Alcohol intake: current Alcohol use details: occasional Substance use: current Substance use type: does not use Last use: LAST 03/20/21 Gender identity (if verbalized by the patient): Female Spiritual care concerns: No Exam Narrative: GENERAL: Well-appearing, well-nourished, and in no acute distress. HEAD: Normocephalic, atraumatic. EYES: PERRLA and EOMI. CHEST: Clear to auscultation. No respiratory distress. No wheezes rales or rhonchi HEART: Regular rate and rhythm. No murmur heard. Normal peripheral pulses. ABDOMEN: Soft, right upper quadrant tenderness, nondistended, normal active bowel sounds. No guarding, negative heel strike, negative psoas and obturator signs EXTREMITIES: Normal range of motion. No edema. SKIN: Warm, dry, no rash. NEURO: No focal deficits. Alert and oriented x3. PSYCH: Normal mood and affect. Course Vital Signs Vital signs: Vital Signs Temperature 36.3 C L 01/05/22 14:31 Pulse Rate 77 01/05/22 14:31 Respiratory Rate 16 01/05/22 14:31 Blood Pressure 131/82 01/05/22 14:31 Pulse Oximetry 100 01/05/22 14:31 Temperature 36.3 C L 01/05/22 14:31 Pulse Rate 77 01/05/22 14:31 Respiratory Rate 16 01/05/22 14:31 Blood Pressure 131/82 01/05/22 14:31 Pulse Oximetry 100 01/05/22 14:31 MDM - Abdominal Pain MDM Narrative Medical decision making narrative: 26-year-old female presents emergency room with right upper quadrant tenderness that began this morning.
[2022-01-05] MEDS: ONDANSETRON INJ 4 MG/2 ML VIAL IV PUSH (14:51)
[2022-01-05] MEDS: SODIUM CHLORIDE 0.9% IV 1,000 ML 999 ML IV CONT (14:51)
[2022-01-05 14:56] LABS: Basophils Percent Auto 0.4 % (0.2-1.2); Eosinophils Absolute Auto 0.1 K/mm3 (0-0.3); Eosinophils Percent Auto 1.2 % (0-4.4); Hematocrit 39.1 % (37.0-47.0); Hemoglobin 12.3 g/dL (12.0-15.0); Immature Granulocyte Absolute 0.01 K/mm3 (0.00-0.031); Immature Granulocyte Percent A 0.2 % (0-0.5); Lymphocytes Absolute Auto 1.98 K/mm3 (0.9-3.2); Lymphocytes Percent Auto 34.9 % (18.3-44.2); Mean Corpuscular HGB Conc 31.5 g/dl (32-36); Mean Corpuscular Hemoglobin 28.7 pg (26-34); Mean Corpuscular Volume 91.1 fl (80-100); Mean Platelet Volume 9.8 fl (7.4-10.4); Monocytes Absolute Auto 0.6 K/mm3 (0.1-0.6); Monocytes Percent Auto 10.6 % (2.6-8.5); Neutrophils Percent Auto 52.7 % (45.5-73.1); Platelet Count Result 269 k/mm3 (150-375); Red Blood Count 4.29 M/mm3 (4.2-5.4); Red Cell Distribution Width 13.4 % (11.5-14.5); White Blood Count 5.7 K/mm3 (4.5-10.0)
[2022-01-05 14:58] LABS: Bilirubin Urine 1+ (Negative); Blood Urine Negative (Negative); Color Urine Yellow (Yellow); Glucose Urine UA Negative (Negative); Ketones Urine Negative (Negative); Leukocyte Esterase Ur Negative LEU/UL (Negative); Nitrate Urine Negative (Negative); Protein Urine 2+ mg/dL (Negative); Specific Grav Ur >= 1.030 (1.001-1.035); Urobilinogen Urine 0.2 mg/dL (<2.0); pH Urine 5.5 (5.0-9.0)
[2022-01-05 15:12] LABS: Add Urine Microscopic? YES; Appearance Urine Sl Cloudy (Clear)
[2022-01-05 15:15] LABS: Alanine Aminotransferase 12 U/L (4-35); Albumin Level 4.5 g/dL (3.5-5.1); Alkaline Phosphatase 77 U/L (38-126); Anion Gap 9 mmol/L (8-16); Aspartate Amino Transferase 27 U/L (14-36); Bilirubin,Total 0.5 mg/dL (0.2-1.3); Blood Urea Nitrogen 9 mg/dL (7-17); Calcium 8.8 mg/dL (8.4-10.2); Carbon Dioxide 23 mmol/L (22-30); Chloride 106 mmol/L (98-107); Estimated CRCL calculation 138 ml/min; Estimated Glomerular Filt Rate > 60; Glucose 79 mg/dL (65-110); Lipase 74 U/L (23-300); Potassium 4.1 mmol/L (3.4-5.0); Sodium 138 mmol/L (137-145)
--- NOTE | 2022-01-05 15:29 | PC.NURSE ---
Pt to CT.
== END 2022-01-05 16:07 | disposition home or self-care (01) ==
PROVIDERS: Emergency Provider Nurse Practitioner Family; PCP Family Medicine
DX: R10.11 Right upper quadrant pain (principal); J45.990 Exercise induced bronchospasm; D68.2 Hereditary deficiency of other clotting factors; E06.3 Autoimmune thyroiditis; F41.9 Anxiety disorder, unspecified; Z86.718 Personal history of other venous thrombosis and embolism; Z86.711 Personal history of pulmonary embolism; Z87.891 Personal history of nicotine dependence; Z97.5 Presence of (intrauterine) contraceptive device
CPT/HCPCS: 36415; 74177; 80053; 81001; 81025; 83690; 85025; 96361; 96374; 99284; J2405; J7030; Q9967